=== PATIENT | male | born 1980 | race Caucasian/White ===

== ENCOUNTER → 2017-08-04 | Outpatient (CLI) | payer BC ==
[~2017-08-04] MED LIST: DOXY50CA PO; GADAVIST IV PRN
--- NOTE | 2017-08-04 11:54 | DIAGNOSTIC IMAGING REPORT ---
LEFT SHOULDER INJECTION UNDER FLUOROSCOPIC GUIDANCE CLINICAL HISTORY: Left shoulder pain. Injection for MR arthrogram. PROCEDURE: The risks, benefits, and alternatives to the procedure were discussed with the patient. Written informed consent was obtained. The patient was placed supine on the fluoroscopy table, and a left shoulder injection was performed under fluoroscopic guidance. The area was prepped and draped in the usual sterile fashion. The skin and soft tissues anesthetized with local 1% lidocaine. The left shoulder joint was accessed utilizing a 22-gauge needle, and approximately 8 cc of a mixture of gadolinium contrast, Optiray 300, and saline was injected into the joint space under fluoroscopic guidance. There was normal distention of the capsule. The procedure was well tolerated and without immediate complication. The patient was then transferred to MRI for MR arthrography. FLUOROSCOPY TIME: 18 seconds. IMPRESSION: Unremarkable injection of the left shoulder under fluoroscopic guidance. Electronically signed by: Franco Trujillo M.D. 08/04/2017 11:53 AM Dictated Date/Time: 08/04/2017 11:52 AM
--- NOTE | 2017-08-04 12:45 | DIAGNOSTIC IMAGING REPORT ---
MR ARTHROGRAM OF THE LEFT SHOULDER CLINICAL HISTORY: Left shoulder pain. Remote injury. COMPARISON STUDY: Radiographs of the left shoulder dated 06/25/2017. TECHNIQUE: Following the intra-articular administration of gadolinium contrast, MR arthrogram of the left shoulder was performed utilizing various T1 and T2 weighted sequences in the axial, sagittal, coronal planes. FINDINGS: Rotator cuff: The supraspinatus and intraspinous tendons are preserved. The teres minor and subscapularis tendons are intact. There is no subacromial or subdeltoid bursal fluid. The acromioclavicular joint is unremarkable. Biceps tendon: The long head of the biceps tendon is normal in signal intensity and located within the bicipital groove. The anchor is maintained. Labrum: There is extensive tearing involving the posterior aspect of the labrum, as well mild tearing involving the posterior aspect of the superior and inferior labrum. Shoulder joint: The joint space is well distended with intra-articular contrast. There is greater than 50% thinning of the articular cartilage along the posterior aspect of the glenoid. Subchondral cyst formation is seen in the posterior glenoid. There is mild posterior subluxation of the humeral head. A tiny bony avulsion from the posterior glenoid is not excluded. Musculature and soft tissues: The musculature of the shoulder is normal in bulk and signal intensity. No atrophy is seen. IMPRESSION: 1. The rotator cuff is intact. 2. There is extensive tearing of the posterior labrum, as well as tearing involving the posterior aspect of the superior and inferior labrum. 3. There is posterior subluxation of the humeral head. 4. There is age advanced arthritic change involving the posterior aspect of the glenoid with nearly full-thickness cartilage loss and subchondral cyst formation. 5. A tiny osseous avulsion from the posterior glenoid is not excluded. Electronically signed by: Franco Trujillo M.D. 08/04/2017 12:44 PM Dictated Date/Time: 08/04/2017 12:38 PM
== END | disposition home or self-care (01) ==
LOC: C.MRIBC 10:39
PROVIDERS: ATTEND Orthopaedic Surgery
DX: M25.512 Pain in left shoulder (principal); S43.492A Other sprain of left shoulder joint, initial encounter; S43.022A Posterior subluxation of left humerus, initial encounter; X58.XXXA Exposure to other specified factors, initial encounter

== ENCOUNTER → 2017-09-03 | Day surgery (SDC) | payer BC, OTHER ==
[2017-08-18 15:35] VITALS: Ht 182.9 cm; Wt 106.8 kg
[~2017-09-03] VITALS: Ht 182.9 cm; Wt 106.8 kg
[~2017-09-03] MED LIST changes: +ATROPINE SULFATE 0.1 MG/ML 5ML SYR IV PRN; +BUPIVACAINE/EPINEPHRINE 0.25% 1:200,000 30 ML VIAL ONE; +CEFAZOLIN 2000MG IV PUSH 10 ML IV SCH; +DEXAMETHASONE SOD INJ 4 MG/ML VIAL ONE; -DOXY50CA PO; +EpHEDrine SULFATE INJ 50 MG/ML AMP IV PRN; +EpINEphrine INJ 1MG/ML AMP 1 MG/ML AMP ONE; +FENTANYL CITRATE INJ 50 MCG/1 ML 2 ML VIAL ONE; -GADAVIST IV PRN; +HYDROmorphone INJ 1 MG/ML SYR IV PRN; +KETO10TA PO; +LACTATED RINGER'S 1000ML 1,000 ML IV SCH; +LIDOCAINE HCL 2% 2 ML VIAL (20MG/ML) ONE; +MIDAZOLAM HCL 1 MG/ML 2ML VIAL ONE; +ONDANSETRON INJ 2 MG/ML 2 ML VIAL IV PRN; +ONDANSETRON INJ 2 MG/ML 2 ML VIAL ONE; +OXYC-57 PO; +OXYCODONE/ACETAMINOPHEN 5-325 TAB PO PRN; +PROPOFOL IV EMULSION 10 MG/ML 20 ML VIAL IV ONE; +ROPIVACAINE 0.5% 5 MG/ML 30 ML VIAL ONE; +SCOPOLAMINE 1.5 MG TDSY TD ONE; +SODIUM CHLORIDE 0.9% 1000ML 1,000 ML IV SCH
--- NOTE | 2017-09-03 10:43 | History & Physical Bridge Note ---
H&P Re-Evaluation Bridge Note: I have examined the patient, reviewed the History & Physical and in the interval since the performance of the History & Physical I have noted the following changes of clinical significance: No changes noted
--- NOTE | 2017-09-03 12:54 | [facility] Post Operative Brief Note ---
Immediate Operative Summary Operative Date Sep 03, 2017. Pre-Operative Diagnosis Left shoulder labrum repair Post-Operative Diagnosis Same as pre-op Procedure(s) Performed Left Shoulder Arthroscopic Posterior Labral Repair Surgeon Dr. Robles Domestic Technician Surgeon(s) Kyleigh HOPKINS Estimated Blood Loss 5ML Findings as above Specimens None Complication(s) None Disposition Recovery Room / PACU
--- NOTE | 2017-09-03 13:16 | Discharge Instructions-SurgCtr ---
Discharge Instructions Date of Service Sep 03, 2017. Visit Reason for Visit: Left Shoulder Glenoid Labrum Tear Discharge Discharge Diagnosis / Problem: SAME ABOVE Discharge Goals Goal(s): Decrease discomfort, Improve function Activity Recommendations Activity Limitations: as noted below Lifting Limitations: until after follow-up appointment Exercise/Sports Limitations: until after follow-up appointment Shower/Bathe: tomorrow Anesthesia . Post Anesthesia Instructions: If you have had General Anesthesia or IV Sedation: * Do not drive today. * Resume driving when surgeon permits. * Do not make important decisions or sign legal documents today. * Call surgeon for: 1. Temperature elevations greater than 101 degrees F. 2. Uncontrollable pain. 3. Excessive bleeding. 4. Persistent nausea and vomiting. 5. Medication intolerance (nausea, vomiting or rash). * For nausea and vomiting use only clear liquids such as: tea, soda, bouillon until nausea subsides, then gradually increase diet as tolerated. * If you have any concerns or questions, call your surgeon's office. If physician is unavailable and it is an emergency, call 911 or go to the nearest emergency room. . Instructions / Follow-Up Instructions / Follow-Up MEDICATIONS: * Resume previous medications unless instructed otherwise by your surgeon. * Always take pain medication on a full stomach or with food to avoid upset stomach. * Do not drink alcohol or drive while taking narcotics. * Ibuprofen or Tylenol may be taken if narcotic not needed. SPECIAL CARE INSTRUCTIONS: __ None _X_ Keep extremity elevated and iced x 48 hours; apply ice 20-30 minutes 8-10 times/day. May remove at night. _X_ Sling (MAY REMOVE AFTER 48 HOURS ONLY TO SHOWER AND FOR THERAPY) _X_24 hrs/day __ Remove at night __ Shoulder Immobilizer __ 24 hrs/day __ Remove at night _X_ Dressing __ Maintain until seen in office, may shower with plastic over site _X_ Remove dressings in 24-48 hours and then may shower _X_ COVER INCISIONS WITH BAND-AID AFTER SHOWERING Call physician if chills or temperature rises above 102 degrees or pain unrelieved by prescribed pain medications at . . Diet Recommendations Home Diet: no limitations Fluid Restriction: None Procedures Procedures Performed: Left Shoulder Arthroscopic Posterior Labral Repair Pending Studies Studies pending at discharge: no Work Instructions Return To Work: after follow-up Lifting Limitations: NO LIFTING WITH LEFT ARM Medical Emergencies . Who to Call and When: Medical Emergencies: If at any time you feel your situation is an emergency, please call 911 immediately. . Non-Emergent Contact Non-Emergency issues call your: Primary Care Provider Call Non-Emergent contact if: you have a fever, temperature is above 101.5 . . "Provider Documentation" section prepared by Rock Santamaria. .
--- NOTE | 2017-09-03 13:28 | Anesthesia Progress Nt - [facility] ---
Anesthesia Post Op Note Date & Time Sep 03, 2017 at 13:28 Vital Signs Pain Intensity: 4 Vital Signs Past 12 Hours Date Time Temp Pulse Resp B/P (MAP) Pulse Ox O2 Delivery O2 Flow Rate FiO2 09/03/17 13:09 36.9 87 16 127/76 100 Mask 6 09/03/17 11:37 72 16 142/79 (100) 98 Diffusion Mask 4 09/03/17 11:32 67 16 122/85 (97) 98 Diffusion Mask 4 09/03/17 11:27 62 16 129/90 (103) 98 Room Air 09/03/17 10:29 144/86 (105) 09/03/17 10:08 36.7 69 16 142/100 (114) 98 Room Air Notes Mental Status: alert / awake / arousable, participated in evaluation Pt Amnestic to Procedure: Yes Nausea / Vomiting: adequately controlled Pain: adequately controlled Airway Patency, RR, SpO2: stable & adequate BP & HR: stable & adequate Hydration State: stable & adequate Anesthetic Complications: no major complications apparent
[2017-09-03 14:53] VITALS: BP 141/92; PULSE 87; O2SAT 99
--- NOTE | 2017-09-03 16:55 | OPERATIVE REPORT ---
DATE OF OPERATION: 09/03/2017 PREOPERATIVE DIAGNOSIS: Posterior labral tear of the left shoulder. POSTOPERATIVE DIAGNOSIS: Same. PROCEDURE: Left shoulder diagnostic arthroscopy with limited debridement and posterior labral repair. SURGEON: Dr. Ernie Robles. GRAB OPERATOR: Osito Santamaria PA-C, whose assistance was necessary for positioning the arm and helping with instrumentation. ANESTHESIA: General with a left interscalene nerve block. COMPLICATIONS: None. CONDITION: Stable to PACU. INDICATIONS: Cirilo is a pleasant 37-year-old male who has been complaining of increasing left shoulder pain. It hurts when he lifts weights. MRI and clinical examination showed a posterior labral tear and some concerns for posterior glenohumeral arthritis. He elected to undergo arthroscopy. OPERATION AND FINDINGS: On 09/03/2017, he arrived at [facility] for the above procedure. He was seen in the preoperative holding area and the operative extremity was identified and signed. He was given preoperative antibiotics, a left interscalene nerve block. He was taken back to the operating room, laid on the table in supine position and put under general anesthesia. He was then put in the lateral decubitus position. The left shoulder was prepped and draped in sterile fashion. Time-out was done and the patient and operative extremity was properly identified. The left arm was brought out to an Arthrex 3-point distracter. The scope was then placed into the posterior portal. Diagnostic arthroscopy showed no cartilage damage to the humeral head. There was a little bit of softening of the cartilage of the posterior aspect of the glenoid, but not as bad as the MRI looked. There was no damage to the superior or anterior labrum. There was significant fraying of the inferior labrum and was encapsulated within the joint. There was some tearing of the posterior labrum and it was torn back from the glenoid. An anterior portal was made and a 7 mm cannula was placed. A shaver was used to do a limited debridement around the labrum and especially the inferior portion of the labrum. The scope was then placed in the anterior portal. A 7 mm cannula was placed in the posterior portal and an additional posterior superior portal was made and a 7 mm cannula was placed in that portal was well. The labrum was then elevated off the posterior aspect of the glenoid with an elevator and the glenoid was prepared with a ball rasp and a shaver. The glenoid was then fixed with Arthrex suture SutureTapes and a 2.9 mm PushLock anchors. Three anchors were placed, 1 at the 2 o'clock position, one at the 3 o'clock position, and one at the 4 o'clock position. This gave a nice posterior labral repair. Multiple pictures were taken. Arthroscopic instruments were then removed from the shoulder. Portal sites were closed with 3-0 nylon. He was then placed in a soft dressing and a regular arm sling. He was then extubated, transferred to a litter and taken to the postanesthesia care unit in stable condition. He tolerated the procedure well. I attest to the content of the Intraoperative Record and any orders documented therein. Any exception s are noted below.
== END | disposition home or self-care (01) ==
LOC: X.SURG 09:55
PROVIDERS: ATTEND Orthopaedic Surgery
DX: M24.812 Other specific joint derangements of left shoulder, not elsewhere classified (principal)